=== PATIENT | female | born 1960 | race Caucasian/White ===

== ENCOUNTER 2016-09-27 06:32 | Day surgery (SDC) | payer OTHER, BC ==
[~2016-09-27 06:32] MED LIST: Lactated Ringers 1,000 ML IV SCH
[2016-09-27] MEDS ORDERED: Bupivacaine 0.5% 10 ML SDV ONE (07:13)
[2016-09-27] MEDS ORDERED: Lidocaine 1% 20 ML MDV ONE (07:13)
[2016-09-27] MEDS ORDERED: fentaNYL 100 MCG/2 ML SDV ONE (07:19)
[2016-09-27] MEDS ORDERED: Midazolam 1 MG/ML 2 ML SDV ONE (07:19)
[2016-09-27] MEDS ORDERED: Propofol 200 MG/20 ML SDV ONE (07:19)
--- NOTE | 2016-09-27 07:20 | PCM.PREANE ---
Preanesthetic Assessment - Anesthesia/Transfusion/Family Hx Anesthesia History: Prior Anesthesia Without Reaction Family History of Anesthesia Reaction: No Transfusion History: No Prior Transfusion(s) Intubation History: Unknown - Review of Systems General: No Symptoms Pulmonary: No Symptoms Cardiovascular: No Symptoms Gastrointestinal: No symptoms Neurological: No Symptoms Other: Reports: None - Physical Assessment O2 Sat by Pulse Oximetry: 100 Respiratory Rate: 16 Vital Signs: Last Vital Signs Temp 36.8 C 09/27/16 07:03 Pulse 84 09/27/16 07:03 Resp 16 09/27/16 07:03 BP 133/81 09/27/16 07:03 Pulse Ox 100 09/27/16 07:03 Height: 1.6 m Weight: 67.132 kg ASA Class: 2 Mental Status: Alert & Oriented x3 Airway Class: Mallampati = 2 Dentition: Reports: Normal Dentition Thyro-Mental Finger Breadths: 3 Mouth Opening Finger Breadths: 3 ROM/Head Extension: Full Lungs: Clear to auscultation, Normal respiratory effort Cardiovascular: Regular Rate, Regular Rhythm - Lab Values: Laboratory Last Values INR 0.96 (0.86-1.11) 09/27/16 06:56 - Allergies Allergies/Adverse Reactions: Allergies Allergy/AdvReac Type Severity Reaction Status Date / Time codeine Allergy Nausea Verified 09/24/16 12:31 - Blood Blood Available: No - Anesthesia Plan Pre-Op Medication Ordered: None - Acknowledgements Anesthesia Type Planned: MAC Pt an Appropriate Candidate for the Planned Anesthesia: Yes Alternatives and Risks of Anesthesia Discussed w Pt/Guardian: Yes Pt/Guardian Understands and Agrees with Anesthesia Plan: Yes PreAnesthesia Questionnaire Other HEENT History: wears glasses, hx of fx nose Cardiovascular History: Reports: None Respiratory History: Reports: None Gastrointestinal History: Reports: Hiatal hernia Genitourinary History: Reports: None CAT SCAN TECH History: Reports: None Musculoskeletal History: Reports: Arthritis, RA Other Musculoskeletal History: hx of fx left arm Neurological History: Reports: Other (see below) Other Neuro History: hx of motion sickness Psychiatric History: Reports: None Endocrine/Metabolic History: Reports: None Hematologic History: Reports: Anemia Immunologic History: Reports: None Oncologic (Cancer) History: Reports: Breast (h/o left breast cancer with modified radical mastectomy with chemo and radiotherapy) Dermatologic History: Reports: None - Past Surgical History Head Surgeries/Procedures: Reports: None HEENT Surgical History: Reports: None Cardiovascular Surgical History: Reports: None Respiratory Surgical History: Reports: None GI Surgical History: Reports: None Female Surgical History: Reports: Mastectomy Endocrine Surgical History: Reports: None Neurological Surgical History: Reports: None Musculoskeletal Surgical History: Reports: None Oncologic Surgical History: Reports: None Dermatological Surgical History: Reports: None - SUBSTANCE USE Smoking Status *Q: Never Smoker Recreational Drug Use History: No - HOME MEDS Home Medications: Home Meds Calcium/Magnesium/Zinc [Calcium & Magnesium plus Zinc] 2 tab PO DAILY 09/24/16 [ History] Folic Acid 1 mg PO DAILY 09/24/16 [History] Methotrexate 5 tab PO WEEKLY 09/24/16 [History] Tamoxifen Citrate 20 mg PO DAILY 09/24/16 [History] - CURRENT (IN HOUSE) MEDS Current Meds: Current Medications Lactated Ringer's (Ringers, Lactated) 1,000 mls @ 125 mls/hr IV ASD[facility]ED [facility] Last Admin: 09/27/16 07:02 Dose: 125 mls/hr
[2016-09-27] MEDS ORDERED: traMADol 50 MG Tab PO PRN (08:19)
[2016-09-27] MEDS ORDERED: Morphine 10 MG/ML Syringe IVPUSH PRN (08:19)
--- NOTE | 2016-09-27 08:22 | PCM.OPNOTE ---
- General Post-Op/Procedure Note Date of Surgery/Procedure: 09/27/16 Operative Procedure(s): Removal of Bard port Pre Op Diagnosis: Desire for Bard port removal Post-Op Diagnosis: Same Anesthesia Technique: Local, MAC (ASA II) Primary Surgeon: Mandeep Aquino Fluid Replacement, Intraop: 1,000 EBL in mLs: 2 Condition: Good Free Text/Narrative:: Dictation [id number]
[2016-09-27] MEDS ORDERED: Lactated Ringers 1,000 ML IV SCH (08:30)
[2016-09-27 09:30] VITALS: BP 112/56
--- NOTE | 2016-09-27 12:28 | OR ---
SURGEON: Mandeep Aquino M.D. DATE OF PROCEDURE: 09/27/2016 OPERATION PERFORMED: Removal of Bard port, right chest. ANESTHESIA: Local MAC. ASA CLASSIFICATION: II. PREOPERATIVE DIAGNOSES: 1. Personal history of breast cancer. 2. Desire for Bard port removal. POSTOPERATIVE DIAGNOSES: 1. Personal history of breast cancer. 2. Desire for Bard port removal. ESTIMATED BLOOD LOSS: 2 mL. INTRAOPERATIVE FLUID REPLACEMENT: 1000 mL of crystalloid. DESCRIPTION OF PROCEDURE: The patient was taken to the operating room, placed on the operating table in supine position. Time-out was called for appropriate identification of patient and procedure. Surgical site had been marked prior to the patient entering the operating room. The right anterior chest was prepped with DuraPrep solution. Sterile drapes were applied. The skin overlying the Bard port was infiltrated with 1% Xylocaine and 0.5% Marcaine solution. The skin incision was made and deepened through the subcutaneous tissue obtaining hemostasis with the use of electrocautery. The port was completely mobilized and removed without difficulty. Pressure was held for 2 minutes, and there was no bleeding from the catheter site. The wound was then inspected for hemostasis and small bleeding sites were electrocoagulated. The incision was closed in 2 layers approximating the subcutaneous tissue with running 3-0 Polysorb, and the skin with subcuticular 4-0 Monocryl reinforced with Steri-Strips. Sterile Tegaderm pad was placed as a dressing. Sponge, needle, and instrument counts were all correct. The patient tolerated the procedure well and was taken to recovery room in stable condition. KAEL / MAYURI /[id number]
== END 2016-09-27 09:10 | disposition home or self-care (01) ==
LOC: MW.SDS 06:32
PROVIDERS: ATTEND Surgery
PROC: 0JPT0XZ Removal of Tunneled Vascular Access Device from Trunk Subcutaneous Tissue and Fascia, Open Approach (ICD-10-PCS; principal; 2016-09-27)
DX: Z45.2 Encounter for adjustment and management of vascular access device (principal); M06.9 Rheumatoid arthritis, unspecified; M19.90 Unspecified osteoarthritis, unspecified site; D64.9 Anemia, unspecified; Z85.3 Personal history of malignant neoplasm of breast; Z92.21 Personal history of antineoplastic chemotherapy; Z92.3 Personal history of irradiation; Z88.5 Allergy status to narcotic agent; Z90.12 Acquired absence of left breast and nipple; Z79.899 Other long term (current) drug therapy
CPT/HCPCS: 36415; 36590; 85610; J2250; J3010; J7120; 00532; 88300; J2704